=== PATIENT | male | born 1985 | race Caucasian/White ===

== ENCOUNTER 2020-06-09 07:32 | Outpatient (REF) | payer OTHER, SELFPAY ==
[2020-06-09 11:15] LABS: MANUAL DIFF FLAG NO
[2020-06-09 11:18] LABS: Basophils Percent Auto 0.8 % (0-2); Eosinophils Absolute Auto 0.1 X10*3/uL (0.0-0.4); Eosinophils Percent Auto 2.6 % (0-4); Hematocrit 40.6 % (42-52); Hemoglobin 13.7 g/dl (14.0-18.0); Lymphocytes Absolute Auto 1.5 X10*3/uL (1.2-4.9); Lymphocytes Percent Auto 39.7 % (20-40); Mean Corpuscular HGB Conc 33.7 g/dl (31.0-36.0); Mean Corpuscular Hemoglobin 31.6 pg (27.0-33.0); Mean Corpuscular Volume 93.5 fL (80-98); Mean Platelet Volume 10.1 fL (9.4-12.4); Monocytes Absolute Auto 0.4 X10*3/uL (0.1-1.2); Monocytes Percent Auto 9.8 % (2-11); Neutrophils Absolute Auto 1.8 X10*3/uL (2.0-8.3); Neutrophils Percent Auto 47.1 % (45-73); Platelet Count 210 X10*3/uL (160-400); Red Blood Count 4.34 X10*6/uL (4.60-5.80); Red Cell Distribution Width 11.9 % (11.0-16.0); White Blood Count 3.9 X10*3/uL (4.8-10.8)
[2020-06-09 12:01] LABS: Alanine Aminotransferase 19 U/L (0-40); Albumin Level 4.2 g/dL (3.5-5.0); Alkaline Phosphatase 46 U/L (39-117); Anion Gap 10 (12-20); Aspartate Amino Transferase 16 U/L (5-37); Blood Urea Nitrogen 19 mg/dL (9-16); Calcium 9.2 mg/dL (8.4-10.2); Carbon Dioxide 29 mmol/L (22-29); Chloride 103 mmol/L (96-108); Cholesterol 164 mg/dL; Estimated Glomerular Filt Rate > 60; Glucose Fasting 91 mg/dL (60-99); HDL Cholesterol 50 mg/dL; LDL Cholesterol Calculated 103 mg/dl; Potassium 4.2 mmol/L (3.3-5.1); Sodium 138 mmol/L (135-145); Total Protein 6.8 g/dL (6.5-8.0); Triglycerides 55 mg/dL
== END 2020-06-09 07:33 | disposition home or self-care (01) ==
LOC: HO.MANLDS 07:32
PROVIDERS: PCP Internal Medicine; Visit Provider Physician Assistant
DX: Z00.00 Encounter for general adult medical examination without abnormal findings (principal); Z13.6 Encounter for screening for cardiovascular disorders
CPT/HCPCS: 36415; 80053; 80061; 85025

== ENCOUNTER 2022-05-12 07:50 | Outpatient (REF) | payer OTHER, SELFPAY ==
[2022-05-12 11:35] LABS: MANUAL DIFF FLAG NO
[2022-05-12 11:46] LABS: Estimated Average Glucose 105 mg/dL; Hemoglobin A1c % 5.3 %
[2022-05-12 11:53] LABS: Basophils Percent Auto 0.7 % (0-2); Eosinophils Absolute Auto 0.2 X10*3/uL (0.0-0.4); Eosinophils Percent Auto 4.7 % (0-4); Hematocrit 40.7 % (42.0-52.0); Hemoglobin 13.6 g/dl (14.0-18.0); Imm Gran Abs Auto 0.01 X10*3/uL (0.00-0.03); Imm Gran Pct Auto 0.2 % (0.0-0.4); Lymphocytes Absolute Auto 1.4 X10*3/uL (1.2-4.9); Lymphocytes Percent Auto 30.9 % (20-40); Mean Corpuscular HGB Conc 33.4 g/dl (31.0-36.0); Mean Corpuscular Hemoglobin 31.2 pg (27.0-33.0); Mean Corpuscular Volume 93.3 fL (80.0-98.0); Mean Platelet Volume 10.1 fL (9.4-12.4); Monocytes Absolute Auto 0.4 X10*3/uL (0.1-1.2); Monocytes Percent Auto 9.6 % (2-11); Neutrophils Absolute Auto 2.4 x10*3/uL (2.0-8.3); Neutrophils Percent Auto 53.9 % (45-73); Platelet Count 248 X10*3/uL (160-400); Red Blood Count 4.36 X10*6/uL (4.60-5.80); Red Cell Distribution Width 12.2 % (11.0-16.0); White Blood Count 4.5 X10*3/uL (4.8-10.8)
[2022-05-12 12:26] LABS: Alanine Aminotransferase 13 U/L (0-40); Albumin Level 4.1 g/dL (3.5-5.0); Alkaline Phosphatase 39 U/L (39-117); Anion Gap 11 (12-20); Aspartate Amino Transferase 15 U/L (5-37); Blood Urea Nitrogen 14 mg/dL (9-16); Calcium 9.1 mg/dL (8.4-10.2); Carbon Dioxide 27 mmol/L (22-29); Chloride 105 mmol/L (96-108); Cholesterol 135 mg/dL; Estimated Glomerular Filt Rate > 60; Glucose Random 89 mg/dL (60-115); HDL Cholesterol 49 mg/dL; LDL Cholesterol Calculated 77 mg/dl; Potassium 4.5 mmol/L (3.3-5.1); Sodium 138 mmol/L (135-145); Total Protein 6.3 g/dL (6.5-8.0); Triglycerides 47 mg/dL
[2022-05-15 11:03] LABS: Free Prostate Spec Ag 0.3 ng/mL; Percent Free Prostate Spec Ag 25 % (calc) (>25); Prostate Specific Ag Total 1.2 ng/mL (< OR = 4.0)
== END 2022-05-12 07:51 | disposition home or self-care (01) ==
LOC: HO.MANLDS 07:50
PROVIDERS: Visit Provider Physician Assistant
DX: Z00.00 Encounter for general adult medical examination without abnormal findings (principal); Z12.5 Encounter for screening for malignant neoplasm of prostate; Z80.42 Family history of malignant neoplasm of prostate
CPT/HCPCS: 36415; 80053; 80061; 83036; 84154; 85025

== ENCOUNTER 2023-06-01 07:35 | Outpatient (REF) | payer OTHER, SELFPAY ==
[2023-06-01 12:19] LABS: MANUAL DIFF FLAG NO
[2023-06-01 12:24] LABS: Basophils Percent Auto 0.7 % (0-2); Eosinophils Absolute Auto 0.3 X10*3/uL (0.0-0.4); Eosinophils Percent Auto 7.5 % (0-4); Hematocrit 40.9 % (42.0-52.0); Hemoglobin 13.8 g/dl (14.0-18.0); Imm Gran Abs Auto 0.01 X10*3/uL (0.00-0.03); Imm Gran Pct Auto 0.2 % (0.0-0.4); Lymphocytes Absolute Auto 1.7 X10*3/uL (1.2-4.9); Lymphocytes Percent Auto 38.7 % (20-40); Mean Corpuscular HGB Conc 33.7 g/dl (31.0-36.0); Mean Corpuscular Hemoglobin 31.4 pg (27.0-33.0); Mean Corpuscular Volume 93.2 fL (80.0-98.0); Mean Platelet Volume 9.9 fL (9.4-12.4); Monocytes Absolute Auto 0.4 X10*3/uL (0.1-1.2); Monocytes Percent Auto 8.8 % (2-11); Neutrophils Percent Auto 44.1 % (45-73); Platelet Count 213 X10*3/uL (160-400); Red Blood Count 4.39 X10*6/uL (4.60-5.80); Red Cell Distribution Width 12.3 % (11.0-16.0); White Blood Count 4.4 X10*3/uL (4.8-10.8)
[2023-06-01 12:53] LABS: Alanine Aminotransferase 22 U/L (0-40); Albumin Level 4.2 g/dL (3.5-5.0); Alkaline Phosphatase 39 U/L (39-117); Anion Gap 11 (12-20); Aspartate Amino Transferase 17 U/L (5-37); Bilirubin Total 0.7 mg/dL (0.0-1.0); Blood Urea Nitrogen 15 mg/dL (9-16); Carbon Dioxide 29 mmol/L (22-29); Chloride 105 mmol/L (96-108); Cholesterol 159 mg/dL (<200); Estimated Glomerular Filt Rate > 60; Glucose Random 90 mg/dL (60-115); HDL Cholesterol 48 mg/dL (>40); LDL Cholesterol Calculated 97 mg/dL (<100); Potassium 4.4 mmol/L (3.3-5.1); Sodium 141 mmol/L (135-145); Total Protein 6.9 g/dL (6.5-8.0); Triglycerides 72 mg/dL (<150)
[2023-06-01 13:14] LABS: Prostate Specific Antigen 1.21 ng/mL (<0.05-4.0)
== END 2023-06-01 07:36 | disposition home or self-care (01) ==
LOC: HO.MANLDS 07:35
PROVIDERS: Visit Provider Physician Assistant
DX: Z00.00 Encounter for general adult medical examination without abnormal findings (principal); Z12.5 Encounter for screening for malignant neoplasm of prostate
CPT/HCPCS: 36415; 80053; 80061; 84153; 85025

== ENCOUNTER 2024-08-06 08:04 | Outpatient (REF) | payer OTHER, SELFPAY ==
--- OUTSIDE RECORDS SUMMARY | 2024-08-06 08:11 | XMS_ITS | Continuity of Care Document ---
Author Name [facility] Organization [facility] Care Team Providers Care Office Aide Name Role Phone [facility] Unavailable Unavailable Allergies, Adverse Reactions, Alerts Combined list of allergies from Department of Defense and Veterans Affairs facilities. It does not include entries that were removed or entered in error. Substance Category Reaction Severity Reaction type Status Date Reported Comments Source No Known Allergies Drug allergy (disorder) [facility] [place] Immunizations Combined list of available immunizations from the Department of Defense and Veterans Affairs facilities. 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 Status Comments Source SARS-COV-2 (COVID-19) vaccine, mRNA, spike protein, LNP, preservative free, 30 mcg/0.3mL dose 0 2020 208 [facility], [employer] (PFR) complet ed SARS-COV- 2 (COVID-19 ) vaccine, mRNA, spike protein, LNP, preservat erika free, 30 mcg/0.3mL dose DoD influenza, injectable, quadrivalent, preservative free 2020 BOGDASARIAN, () Not Given influenza , injectabl e, quadrival ent, preservat erika free DoD Influenza, injectable, quadrivalent, preservative free 0 2020 150 Seqirus (SEQ) comple t ed Influenza , injectabl e, quadrival ent, preservat erika free [facility] SARS-COV-2 (COVID-19) vaccine, mRNA, spike protein, LNP, preservative free, 30 mcg/0.3mL dose 2 2020 [id number] [facility], [employer] (PFR) complet ed SARS-COV- 2 (COVID-19 ) vaccine, mRNA, spike protein, LNP, preservat erika free, 30 mcg/0.3mL dose DoD SARS-COV-2 (COVID-19) vaccine, mRNA, spike protein, LNP, preservative free, 30 mcg/0.3mL dose 1 2020 [id number] Pfizer, Inc (PFR) complet ed SARS-COV- 2 (COVID-19 ) vaccine, mRNA, spike protein, LNP, preservat erika free, 30 mcg/0.3mL dose DoD anthrax vaccine 2 2019 [id number] [facility] complet ed anthrax vaccine DoD vaccinia (smallpox) vaccine 1 2019 [id number] (KAL[place]) complet ed vaccinia (smallpox ) vaccine DoD typhoid Vi capsular polysaccharid e vaccine 1 2019 [id number] Sanofi Pasteur (PMC) complet ed typhoid Vi capsular polysacch aride vaccine DoD anthrax vaccine 1 2018 [id number] [facility] ([facility]) complet ed anthrax vaccine DoD Influenza, injectable, quadrivalent, preservative free 1 2018 [id number] 150 Seqirus (SEQ) complet ed Influenza , injectabl e, quadrival ent, preservat erika free DoD Influenza, injectable, Madin Cosby Canine Kidney, quadrivalent with preservative 1 2017 UNK 186 SmithKline (SKB) complet ed Influenza , injectabl e, Madin Cosby Canine Kidney, quadrival ent with preservat erika DoD Influenza, seasonal, injectable, preservative free 2016 Cami DOUGLAS () Not Given Influenza , seasonal, injectabl e, preservat erika free DoD influenza virus vaccine, unspecified formulation 1 2016 [id number] Seqirus (SEQ) comple t ed influenza virus vaccine, unspecifi ed formulati on DoD hepatitis A vaccine, adult dosage 2 2015 [id number] 52 SmithKline (SKB) complet ed hepatitis A vaccine, adult dosage DoD influenza virus vaccine, unspecified formulation 1 2015 [id number] 88 Seqirus (SEQ) comple t ed influenza virus vaccine, unspecifi ed formulati on DoD measles, mumps and rubella virus vaccine 1 2014 [id number] 03 Merck (MSD) complet ed measles, mumps and rubella virus vaccine DoD hepatitis B vaccine, adult dosage 1 2014 [id number] 43 SmithKline (SKB) complet ed hepatitis B vaccine, adult dosage DoD hepatitis A vaccine, adult dosage 1 2014 [id number] 52 [facility] (SKB) complet ed hepatitis A vaccine, adult dosage DoD Influenza, seasonal, injectable, preservative free 1 2014 [id number] 140 Novartis cloudControl. (NOV) complet ed Influenza , seasonal, injectabl e, preservat erika free DoD varicella virus vaccine 1 2013 [id number] 21 Merck (MSD) complet ed varicella virus vaccine DoD poliovirus vaccine, inactivated 1 2013 [id number] 10 Sanofi Pasteur (PMC) complet ed polioviru s vaccine, inactivat ed DoD meningococcal polysaccharid e (groups A, C, Y and W-135) diphtheria toxoid conjugate vaccine (MCV4P) 1 2013 [id number] 114 OmniEarth (SKB) complet ed meningoco ccal polysacch aride (groups A, C, Y and W-135) diphtheri a toxoid conjugate vaccine (MCV4P) DoD tetanus toxoid, reduced diphtheria toxoid, and acellular pertu is vaccine, adsorbed 1 2013 [id number] 115 Sanofi Pasteur (PMC) complet ed tetanus toxoid, reduced diphtheri a toxoid, and acellular pertussis vaccine, adsorbed DoD Influenza, seasonal, injectable, preservative free 2013 YARA LAMA () Not Given Influenza , seasonal, injectabl e, preservat erika free DoD hepatitis B vaccine, pediatric or pediatric/ado lescent dosage 3 1998 UNK 08 Unknown (UNK) comple t ed hepatitis B vaccine, pediatric or pediatric /adolesce nt dosage DoD hepatitis B vaccine, pediatric or pediatric/ado lescent dosage 2 1997 UNK 08 Unknown (UNK) comple t ed hepatitis B vaccine, pediatric or pediatric /adolesce nt dosage DoD measles, mumps and rubella virus vaccine 2 1997 UNK 03 Unknown (UNK) comple t ed measles, mumps and rubella virus vaccine DoD hepatitis B vaccine, pediatric or pediatric/ado lescent dosage 1 1997 UNK 08 Unknown (UNK) comple t ed hepatitis B vaccine, pediatric or pediatric /adolesce nt dosage DoD varicella virus vaccine 1 1995 UNK 21 Unknown (UNK) comple t ed varicella virus vaccine DoD trivalent poliovirus vaccine, live, oral 1 1991 UNK 02 Unknown (UNK) comple t ed trivalent polioviru s vaccine, live, oral DoD measles, mumps and rubella virus vaccine 1 1987 UNK 03 Unknown (UNK) comple t ed measles, mumps and rubella virus vaccine DoD Encounters Combined list of: 1) Encounters from Department of Veterans Affairs facilities going backup to the last 18 months, not all VA inpatient encounters are included; 2) Encounters from the Department of Defense facilities going backup to 280 months. Location Location Details Encounter Type Encounter Number Reason For Visit Attending Provider ADM Date DC Date Status Disposition Source [place] [facility] [place] OUTPATIENT [id number] CARA KELLEY 01/06 Released w/o Limitations [place]) [place]) OUTPATIENT [id number] Notes Entered by: BLANCO AMIN 13 Jan 2014 1051 ------- ------- ------- ------- -- hearing test MAGDA AMIN 01/13 Released w/o Limitations [place] ) [place] OUTPATIENT [id number] Notes Entered by: MARLENA HUMPHRIES RA 06 Mar 2014 0719 ------- ------- ------- ------- -- IMM2 MGC, JULIO C, NOLVIA, HAIR PÉREZ 03/06 Released w/o Limitations [place] ) [facility] [place]) OUTPATIENT [id number] Notes Entered by: KAY UREÑA 01 Oct 2017 1143 ------- ------- ------- ------- -- MOB/JAVAN RAMIREZ 10/01 Released w/o Limitations [facility] [place]( [facility]) [facility] [place]([facility]) OUTPATIENT [id number] Notes Entered by: JONATHAN GOMES 01 Oct 2017 1241 ------- ------- ------- ------- -- GRANT ESQUIVEL 10/01 Released w/o Limitations [facility] [place]([facility] ) [facility] [place]) OUTPATIENT [id number] Notes Entered by: TIFFANY SHIN 07 Mar 2018 0948 ------- ------- ------- ------- -- EMMY RODRIGUEZ 03/07 Released w/o Limitations [facility] [place]([facility] De[facility]) [place] ([employer] [facility] Dep/Lexii Byrnes) OUTPATIENT [id number] Notes Entered by: MILADYS STEEL 19 May 2021 1314 ------- ------- ------- ------- -- ADAM Cole 05/19 Released w/o Limitations [place] ([employer] [facility])(Sr c Dep/Kaveh ob Fitz) [place] ([employer] [facility])(Opto metry) OUTPATIENT [id number] Notes Entered by: TARA KIRK 20 May 2021 0836 ------- ------- ------- ------- -- EFREN Agustin 05/20 Released w/o Limitations [place] ([employer] [facility])(Op tometry ) Procedures Combined list of: 1) Procedures from Department of Veterans Affairs facilities going back up to thelast 18 months, not all VA non-surgical procedures are included; 2) All procedures from the Department of Defense facilities. Procedure Procedure Type Code Date Perfomer Comments Sourc e Threshold Audiogram (Pure Tone) Automated Threshold Audiogram (Pure Tone) Automated [id number] 10/03/19 18 GRANT ASKEW Immunization Administration Each Additional Vaccine Immunization Administration Each Additional Vaccine 79550 03/10/20 14 HAIR PILLAI DoD Tdap Vaccine Tdap Vaccine 71940 03/10/20 14 HAIR [place]ILL[place] Visit for an IM injection of 0.5mL of Boostrix (Tetanus and Diphtheria Toxoids and Acellular Pertussis). Was given in the Right Deltoid. Patient was observed for 15 min with no adverse reactions. DoD Meningococcal Polysacch Diphtheria Toxoid Conjugate Vaccine 03/10/20 14 HAIR PILL[place] Visit for an IM injection of 0.5mL of Meningococcal Vaccine (Menactra). Was given in the Left Deltoid. Patient was observed for 15 min with no adverse reactions. DoD Vaccines Viral Polio, Inactivated (Salk) Vaccines Viral Polio, Inactivated (Salk) 18146 03/10/20 14 HAIR PILLAI Visit for an IM injection of 0.5mL of IPOL (Poliovirus Vaccine Inactivated). Was given in the Right Deltoid. Patient was observed for 15 min with no adverse reactions. [facility] Vaccines Viral Varicella (Active) Vaccines Viral Varicella (Active) 35923 03/10/20 14 HAIR PILLAI Visit for a SQ injection of 0.5mL of Varicella. Was given in the Right Tricep. Patient was observed for 15 min with no adverse reactions. DoD Immunization Administration One Vaccine Immunization Administration One Vaccine 86889 03/10/20 14 HAIR PILLAI [facility] Threshold Audiogram (Pure Tone) Automated Threshold Audiogram (Pure Tone) Automated 0208T 01/14/20 14 MAGDA AMIN [facility] [employer] Fitting Monofocals (Not For Aphakia) [employer] Fitting Monofocals (Not For Aphakia) 62512 EFREN KIRK DoD Social History Combined list of available smoking, tobacco, and other social history from Department of Defense and Veterans Affairs facilities. Social History Type Response Date Comment Sour e This section is an empty social history section. DoD
--- OUTSIDE RECORDS SUMMARY | 2024-08-06 08:11 | XMS_ITS | Data Portability ---
Author Organization [facility] Home Service Address [address] [place] [address] Assessment No assessment recorded. Plan of Treatment Reminders Order Date Submit Date Provider Last Modified By Organization Details Last Modified Time Details Appointments ANNUAL EXAM 2025 03:30P TWAN VASQUEZ Not available Not available Not available Lab CMP, serum or plasma 2024 025 [facility], [address] [place] [address], [id number], 05/05/2024 15:52:05 lipid panel, blood 2024 025 [facility], [address] [place] [address], [id number], 05/05/2024 15:52:05 CBC w/ auto diff 2024 025 [facility], [address] [place] [address], [id number], 05/05/2024 15:52:05 hemoglobi n A1c, QN, blood 2024 025 [facility], [address] [place] [address], [id number], 05/05/2024 15:52:05 vitamin D, 25-hydrox y, total, serum 2024 025 [facility], [address] [place] [address], [id number], 05/05/2024 15:52:05 CMP, serum or plasma 2023 024 [facility], [address] [place] [address], [id number], 06/04/2023 11:41:05 lipid panel, blood 2023 024 [facility], [address] [place] [address], [id number], 06/04/2023 11:41:05 CBC w/ auto diff 2023 024 [facility], [address] [place] [address], [id number], 06/04/2023 11:41:06 PSA, serum or plasma 2023 024 [facility], [address] [place] [address], [id number], 06/04/2023 11:41:05 PSA, total + free, serum or plasma 2022 023 [facility], [address] [place] [address], [id number], 05/16/2022 11:29:51 CMP, serum or plasma 2022 023 [facility], [address] [place] [address], [id number], 05/15/2022 11:34:15 lipid panel, blood 2022 023 [facility], [address] [place] [address], [id number], 04/21/2022 09:25:16 CBC w/ auto diff 2022 023 [facility], [address] [place] [address], [id number], 04/21/2022 09:25:16 hemoglobi n A1c, QN, blood 2022 023 [facility], [address] [place] [address], [id number], 04/21/2022 09:25:16 lipid panel, blood 2020 021 [facility], [address] [place] [address], [id number], 06/10/2020 11:29:40 CMP, serum or plasma 2020 021 [facility], [address] [place] [address], [id number], 06/10/2020 11:29:40 CBC w/ auto diff 2020 021 [facility], [address] [place] [address], [id number], 06/10/2020 11:29:41 Referral None recorded. Procedures None recorded. Surgeries None recorded. Imaging None recorded. Medication Orders doxycycli ne hyclate 100 mg capsule 2022 023 [id number], [address] [place] [address], [phone], 04/27/2023 15:52:48 Patient TargetsNo targets recorded. Patient InstructionsNo instructions recorded. Reason for Referral None Reported. Results Created Date Observation Date Name Description Value Unit Range Abnormal Flag Note LastModifiedBy Organization Detail LastModifiedTime Result Notes None recorded. 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 Procedures Surgical History Date Name Laterality Status Provider Name and Address Organization Details Recorded Time 1 Cerumen Removal completed TWAN WRIGHT [address] [place], [address], [facility] 09/17/2020 13:57:34 Imaging Results None recorded. Procedure Notes None recorded. Medical Equipment None Reported. Allergies No known drug allergies Medications Name Sig Start Date Stop Date Status Note LastModified by Organization Details LastModified Time clonidine HCl 0.1 mg tablet Take 1 tablet every day by oral route for 30 days. 01/20 completed Not Available Not Available Not Available doxycycline hyclate 100 mg capsule Take 1 capsule twice a day by oral route for 30 days. 04/27 completed Not Available Not Available Not Available ketoconazol e 2 % shampoo 06/04 completed Not Available Not Available Not Available trazodone 50 mg tablet Take 1 tablet every day by oral route for 30 days. 01/20 completed Not Available Not Available Not Available doxycycline monohydrate 100 mg tablet 09/17 completed Not Available Not Available Not Available clindamycin 1 % topical gel BHARGAVI EXT AA QHS 06/04 completed Not Available Not Available Not Available betamethaso ne dipropionat e 0.05 % topical cream APPLY TO AFFECTED AREA BY TOPICAL ROUTE TWICE DAILY FOR TWO WEEKS THEN NEEDED 06/04 completed Not Available Not Available Not Available desonide 0.05 % lotion USE TWICE DAILY ON FACE FOR 2 WEEKS 04/27 completed Not Available Not Available Not Available mupirocin 2 % topical ointment APPLY TO AFFECTED AREA TWICE DAILY 04/21 completed Not Available Not Available Not Available doxycycline hyclate 100 mg tablet TAKE 1 TABLET BY MOUTH TWICE DAILY 04/27 completed Not Available Not Available Not Available clindamycin 1 % lotion APPLY EXTERNALL Y TO THE AFFECTED AREA OF NECK DAILY 04/27 completed Not Available Not Available Not Available multivitami n qd active Not Available Not Available Not Available Vitals Date Recorded Body height Body mass index (BMI) Body weight Heart rate Oxygen saturation Oxygen saturation in Arterial blood by Pulse oximetry Systolic blood pressure Diastolic blood pressure Provider Name and Address Organization Details Last Updated DateTime 1 186.69 cm 23.7 kg/m2 34358.4 5 g 56 /min 99 % 99 % 126 mm[Hg] 70 mm[Hg] Lupe Cross [facility] 1 13:35:30 Date Recorded Body height Body mass index (BMI) Body weight Heart rate Oxygen saturation Oxygen saturation in Arterial blood by Pulse oximetry Systolic blood pressure Diastolic blood pressure Provider Name and Address Organization Details Last Updated DateTime 1 186.69 cm 23.8 kg/m2 32822.4 g 64 /min 98 % 98 % 120 mm[Hg] 76 mm[Hg] Duyen Bearden [facility] 1 13:51:09 Date Recorded Body height Body mass index (BMI) Body weight Oxygen saturation Oxygen saturation in Arterial blood by Pulse oximetry Heart rate Systolic blood pressure Diastolic blood pressure Provider Name and Address Organization Details Last Updated DateTime 3 186.69 cm 23.5 kg/m2 15264.7 g 96 % 96 % 91 /min 110 mm[Hg] 60 mm[Hg] Yakelin Bach [facility] 3 08:59:57 Date Recorded Body height Body mass index (BMI) Body weight Heart rate Oxygen saturation Oxygen saturation in Arterial blood by Pulse oximetry Systolic blood pressure Diastolic blood pressure Provider Name and Address Organization Details Last Updated DateTime 4 185.42 cm 23.9 kg/m2 16904.2 2 g 53 /min 97 % 97 % 118 mm[Hg] 68 mm[Hg] Reta Fonseca [facility] 4 15:31:02 Date Recorded Body height Body mass index (BMI) Body weight Heart rate Oxygen saturation Oxygen saturation in Arterial blood by Pulse oximetry Systolic blood pressure Diastolic blood pressure Provider Name and Address Organization Details Last Updated DateTime 5 185.42 cm 23.7 kg/m2 58627.8 3 g 88 /min 96 % 96 % 128 mm[Hg] 78 mm[Hg] Dorene Drew [facility] 5 15:39:32 Social History Question Answer Notes LastModified by Organizat ion Details LastModified Time Tobacco Smoking Status Never [facility]2019 16:37:20 What Was The Date Of Your Most Recent Tobacco Screening? 05/05/2024 [email or web address] Information not available 05/05/2024 Do You Use Any Illicit Or Recreational Drugs? No [email or web address] Information not available 04/27/2023 Sex: Unknown Functional Status None recorded. Mental Status None recorded. Family History Relationship Description Onset Age of this Age Resolved Age Notes LastModified by Organization Details LastModified Time Paternal Uncle Malignant melanoma [email or web address] Not available 2024 15:33:33 Paternal Uncle Carcinoma of prostate [email or web address] Not available 2024 15:33:33 Maternal Aunt Malignant melanoma [email or web address] Not available 2024 15:33:33 Father Harmful pattern of use of alcohol [email or web address] Not available 2019 16:38:29 Paternal Grandfather Harmful pattern of use of alcohol [email or web address] Not available 2019 16:38:38 Maternal Uncle Cerebrovascu lar accident [email or web address] Not available 13:52:20 Maternal Uncle Coronary arterioscler osis [email or web address] Not available 06/03 13:52:32 Maternal Grandfather Coronary arterioscler osis [email or web address] Not available 06/03 13:52:37 Maternal Grandfather Carcinoma of prostate [email or web address] Not available 2024 15:33:33 Medical History No medical history recorded. Immunizations Vaccine Type Date Status Note Provider Nam e and Address Organization Details Recorded Time Influenza, split virus, quadrivalent, preservative 1 completed Lupe seals [facility] 12/14/2020 13:55:01 COVID-19, mRNA, LNP-S, PF, 30 mcg/0.3 mL dose 1 completed Navjot Gooden, DO [address] [place] [address], [phone], [facility] 02/24/2021 16:22:17 COVID-19, mRNA, LNP-S, PF, 30 mcg/0.3 mL dose [facility] 08:06:56 COVID-19, mRNA, LNP-S, PF, 30 mcg/0.3 mL dose 1 completed Yakelin seals, [facility] 04/21/2022 08:07:02 COVID-19, mRNA, LNP-S, PF, 30 mcg/0.3 mL dose 3 [facility]22 08:07:09 influenza, unspecified formulation 2 [facility]/2022 08:07:24 influenza nasal, unspecified formulation 3 completed TWAN WRIGHT [address] [place] [address], [phone], [facility] 04/27/2023 15:53:37 Tdap 1 completed TWAN WRIGHT [address] [place] [address], [phone], [facility] 04/27/2023 15:54:15 Influenza, split virus, quadrivalent, preservative 9 completed July RANDEE Rogel [address] [place] [address], [phone], [facility] 06/04/2019 13:51:32 Influenza, split virus, quadrivalent, preservative 0 [facility]/04/2020 13:34:41 Past Encounters Encounter ID Performer Location Encounter Start Date Encounter Closed Date Diagnosis/Indication Diagnosis SNOMED-CT Code Diagnosis ICD10 Code Diagnosis Note [id number] Navjot Gooden [facility] [address],[place] [address] 06/04/2019 13:26:15 06/04/2019 14:20:00 Adult health examination 900727674 Z00.00 [facility] derm annually [facility] twice per year sees opth annually needs labs done Active or passive immunization 413129250 Z23 will send over vaccinatio n record [id number] Navjot Gooden [facility] [address], [place] [address] 01/06/2020 13:45:11 01/06/2020 14:42:28 Alcohol withdrawal 189283341 F10.939 the patient is having symptoms of alcohol withdrawal given his Alcohol dependence 91135 003 F10.20 the patient is going to start going to AA meetings with his friend for support who is also in recovery Insomnia 732770976 G47.0 0 will trial on trazodone may need to switch to different medication [id number] Navjot Gooden [facility] [address],[facility] [place] [address] 01/21/2020 15:26:28 01/21/2020 16:23:36 Harmful pattern of use of alcohol 15315237 F10.10 has quit drinking for the past 16 days will call when he needs me for materials Anxiety 52701246 F41.9 stable [id number] Navjot Gooden [facility] [address],[facility] [place] [address] 06/04/2020 13:29:40 06/04/2020 14:21:57 Active or passive immunization 837966157 Z23 the patient needs Tdap booster Adult heal th examination 054813948 Z00.00 BP is excellent today Screening for cardiovascular system disease 918573131 Z13.6 [place] [id number] Navjot Gooden [facility] [address], [place] [address] 09/17/2020 13:47:09 09/17/2020 15:26:51 Impacted cerumen of bilateral ears 0716474894 970366 H61.23 TMs are visualized wellpatien t tolerated the procedure well Alcohol withdrawal 20653 0000 F10.939 patient has been clean and sober for the past 9 mo [id number] Navjot Gooden [facility] [address],[place] [address] 04/21/2022 08:55:03 04/21/2022 12:15:54 Active or passive immunization 813200520 Z23 the patient needs Tdap booster Adult heal th examination 482393021 Z00.00 BP is excellent today Acne 52789032 L70.8 will start on doxycyclin e for outbreak Family his tory of malignant neoplasm of prostate 505115737 Z80.42 will set up with [id number] Navjot Gooden [facility] [address],[place] [address] 04/27/2023 15:20:22 04/27/2023 16:13:33 Harmful pattern of use of alcohol 63246314 F10.939 stable, has not had a drink in over 4 years now Adult heal th examination 476696221 Z00.00 BP is excellent today [id number] Navjot Gooden [facility] [address],[place] [address] 05/05/2024 15:30:18 05/05/2024 16:17:53 Active or passive immunization 481190982 Z23 the patient needs Tdap booster Adult heal th examination 551932456 Z00.00 BP is excellent today Health Concerns Section Related Observation LastModified by Organization Detai ls LastModified Time None Recorded Concern Status LastModified by Organization Details LastModified Time None Recorded Advance Directives Directive None Recorded Payers Encounter Date Sequence Insurance Name Policy Number Policy Esparza Covered Member ID Esparza Member ID Guarantor Name 06/04/2020 1 [employer] () Anthony Grover [id number] Anthony Grover 09/17/2020 1 [employer] () Anthony Grover [id number] Anthony Grover 04/21/2022 1 [employer] () Anthony Grover [id number] Anthony Grover 04/27/2023 1 [employer] () Anthony Grover [id number] Anthony Grover Notes Date Note Type Note Provider Name a nm Address Organization Details Recorded Time 1 text/html Annual WellnessReported bypatient.Diet and Nutrition:discussed vitamin and supplement use; discussed portion control; discussed maintaining calcium balance; discussed diet improvement Fracture Risk:no history of fractures; no recent explained fracture; no sudden unexplained fractures; no previous musculoskeletal injuries Physical Activity:exercises on a regular basis; recent increase in physical activity; discussed weightbearing activities; discussed exercise habits Additional Lifestyle Factors:no tobacco use; no alcohol intake (the patient has been sober for 5 mo) Depression Risk:never feels sad, empty, or tearful; no loss of interest in activities; no significant changes in weight; no sleep disturbances or insomnia; no agitation; no loss of energy; no feelings of worthlessness or guilt; no thoughts of suicide; no history of depression; no history of mood disorders Hearing:no loss of hearing Vision:no vision problems the patient reports that he has not had a drink in 5 month since we last spoke TWAN WRIGHT [address] [place] [address], [phone], [facility] 06/04/2020 13:57:43 1 text/html c/o the patient reports that for the past week or so he has developed hearing loss in the right ear, partial hearing loss in the left ear otherwise no pain, no tinnitus, no discharge from the ear the patient states it's worse in the morning due to the fact that he is laying on the obstructed side otoscope ear exam reveals complete impaction of the right ear and almost complete impaction of the left ear the patient consents to an ear lavage TWAN WRIGHT [address] [place] [address], [phone], [facility] 09/17/2020 14:04:33 3 text/html Annual WellnessReported bypatient.Diet and Nutrition:healthy diet; discussed vitamin and supplement use; discussed portion control; discussed maintaining calcium balance; discussed diet improvement Fracture Risk:no history of fractures; no recent explained fracture; no sudden unexplained fractures; no previous musculoskeletal injuries Physical Activity:exercises on a regular basis; recent increase in physical activity; good physical condition Additional Lifestyle Factors:no tobacco use; no alcohol intake Depression Risk:never feels sad, empty, or tearful; no loss of interest in activities; no significant changes in weight; no sleep disturbances or insomnia; no agitation; no loss of energy; no feelings of worthlessness or guilt; no thoughts of suicide; no history of depression; no history of mood disorders Hearing:no loss of hearing; bilateral ear impaction addressed to today Vision:no vision problems; sees Dr. Orozco and Dr. Simms goes once per year (near sighted) the patient was in the hospital year agothe patient has a small bowel blockage no changes in allergies, no changes in family historythree years sober; doing really well still going to sees dermatologysees dentist regularlysees eye doctor regularly TWAN WRIGHT [address] [place] [address], [phone], [facility] 04/21/2022 09:29:46 4 text/html Annual WellnessReported bypatient.Diet and Nutrition:healthy diet; discussed vitamin and supplement use; discussed portion control; discussed maintaining calcium balance; discussed diet improvement Fracture Risk:no history of fractures; no recent explained fracture; no sudden unexplained fractures; no previous musculoskeletal injuries Physical Activity:exercises on a regular basis; recent increase in physical activity; good physical condition; discussed weightbearing activities; discussed exercise habits; works out every day and runs competitively Additional Lifestyle Factors:no tobacco use; drinks alcohol (mild-moderate) Depression Risk:never feels sad, empty, or tearful; no loss of interest in activities; no significant changes in weight; no sleep disturbances or insomnia; no agitation; no loss of energy; no feelings of worthlessness or guilt; no thoughts of suicide; no history of depression; no history of mood disorders Hearing:no loss of hearing Vision:no vision problemsNotes:last dentist appt was within 6 mos, last appt was 12/2022 sees eye doctor routinelyno issuessees 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 no new allergies TWAN WRIGHT [address] [place] [address], [phone], [facility] 04/27/2023 16:12:35 5 text/html Annual WellnessReported bypatient.Diet and Nutrition:healthy diet; discussed vitamin and supplement use; discussed portion control; discussed maintaining calcium balance; discussed diet improvement Fracture Risk:no history of fractures; no recent explained fracture; no sudden unexplained fractures; no previous musculoskeletal injuries Physical Activity:exercises on a regular basis; recent increase in physical activity; good physical condition Additional Lifestyle Factors:no tobacco use; no alcohol intake; stopped drinking alcohol Depression Risk:never feels sad, empty, or tearful; no loss of interest in activities; no significant changes in weight; no sleep disturbances or insomnia; no agitation; no loss of energy; no feelings of worthlessness or guilt; no thoughts of suicide; no history of depression; no history of mood disorders Hearing:no loss of hearing Vision:no vision problemsNotes:routine dentist apptssees derm f/u every year ([facility])sees eye doctor sober x 5 years TWAN WRIGHT [address] [place] [address], [phone], [facility] 05/05/2024 16:02:31
[2024-08-06 13:44] LABS: MANUAL DIFF FLAG NO
[2024-08-06 13:54] LABS: Basophils Percent Auto 0.6 % (0-2); Eosinophils Absolute Auto 0.3 X10*3/uL (0.0-0.4); Eosinophils Percent Auto 5.4 % (0-4); Hematocrit 39.3 % (42.0-52.0); Hemoglobin 13.6 g/dl (14.0-18.0); Imm Gran Abs Auto 0.01 X10*3/uL (0.00-0.03); Imm Gran Pct Auto 0.2 % (0.0-0.4); Lymphocytes Absolute Auto 1.6 X10*3/uL (1.2-4.9); Lymphocytes Percent Auto 34.5 % (20-40); Mean Corpuscular HGB Conc 34.6 g/dl (31.0-36.0); Mean Corpuscular Hemoglobin 31.6 pg (27.0-33.0); Mean Corpuscular Volume 91.2 fL (80.0-98.0); Mean Platelet Volume 9.8 fL (9.4-12.4); Monocytes Absolute Auto 0.5 X10*3/uL (0.1-1.2); Monocytes Percent Auto 9.7 % (2-11); Neutrophils Absolute Auto 2.3 x10*3/uL (2.0-8.3); Neutrophils Percent Auto 49.6 % (45-73); Platelet Count 211 X10*3/uL (160-400); Red Blood Count 4.31 X10*6/uL (4.60-5.80); Red Cell Distribution Width 12.4 % (11.0-16.0); White Blood Count 4.7 X10*3/uL (4.8-10.8)
[2024-08-06 14:16] LABS: Estimated Average Glucose 103 mg/dL; Hemoglobin A1C 120.2235 umol/L; Hemoglobin A1c % 5.2 % (<6.0); Total Hemoglobin (HGBA1C) 3619.3456 umol/L
[2024-08-06 14:28] LABS: Alanine Aminotransferase 22 U/L (0-40); Albumin Level 4.1 g/dL (3.5-5.0); Alkaline Phosphatase 38 U/L (39-117); Anion Gap 11 (12-20); Aspartate Amino Transferase 26 U/L (5-37); Bilirubin Total 1.4 mg/dL (0.0-1.0); Blood Urea Nitrogen 14 mg/dL (9-16); Calcium 9.3 mg/dL (8.4-10.2); Carbon Dioxide 26 mmol/L (22-29); Chloride 106 mmol/L (96-108); Cholesterol 164 mg/dL (<200); Estimated Glomerular Filt Rate > 60; Glucose Random 86 mg/dL (60-115); HDL Cholesterol 56 mg/dL (>40); LDL Cholesterol Calculated 98 mg/dL (<100); Potassium 4.4 mmol/L (3.3-5.1); Sodium 139 mmol/L (135-145); Total Protein 6.9 g/dL (6.5-8.0); Triglycerides 51 mg/dL (<150)
[2024-08-06 14:35] LABS: Vitamin D 25-OH Total 41.5 ng/mL (>30)
== END 2024-08-06 08:05 | disposition home or self-care (01) ==
LOC: HO.MANLDS 08:04
PROVIDERS: Visit Provider Physician Assistant
DX: Z00.00 Encounter for general adult medical examination without abnormal findings (principal); Z13.6 Encounter for screening for cardiovascular disorders; Z13.1 Encounter for screening for diabetes mellitus
CPT/HCPCS: 36415; 80053; 80061; 82306; 83036; 85025